=== PATIENT | male | born 1935 | race Caucasian/White ===

== ENCOUNTER → 2017-06-29 | Outpatient (CLI) | payer OTHER, MEDICARE ==
[~2017-06-29] MED LIST: ALBUTEROL2.5 MG/0.1 INH; ALLER-CHLOR4 MG PO; ANTIVERT25 MG PO; AUGMENTIN 500-1 EACH PO; CENTRUM SILVER1 EAC2 PO; CROMOLYN PO; FLOMAX0.4 MG PO; LIPITOR20 MG PO; LISINOPRIL10 MG PO; LISINOPRIL2.5 MG PO; MECLIZINE HCL12.5 MG PO; NEURONTIN 300300 M1 PO; PREDNISONE 10 M10 MG PO; PREDNISONE 20 M20 MG PO; PREDNISONE 5 MG5 M1; SPIRIVA RESPIMAT4 G1 IH; SYMBICORT160 MCG/4. INH; TUMS PO; VITAMIN D-32000 UNIT PO; VITAMINC500 PO; ZANTAC 150MG T150 MG PO; ZOFRAN ODT4 MG PO; ZPAK PO
== END ==
LOC: RAD 11:16 → CAT 11:16
DX: M43.12 Spondylolisthesis, cervical region (principal)

== ENCOUNTER → 2017-10-13 | Outpatient (CLI) | payer OTHER, MEDICARE | LOC: RAD 11:31 | DX: M25.562 Pain in left knee (principal); Z96.652 Presence of left artificial knee joint ==

== ENCOUNTER → 2018-11-10 | Outpatient (CLI) | payer OTHER, MEDICARE | LOC: RAD 15:13 | DX: J44.9 Chronic obstructive pulmonary disease, unspecified (principal) ==

== ENCOUNTER → 2019-05-10 | Outpatient (CLI) | payer OTHER, MEDICARE | LOC: RAD 10:34 | DX: R05 Cough (principal); R06.2 Wheezing; R50.9 Fever, unspecified ==

== ENCOUNTER 2019-07-20 04:37 | Inpatient (IN) | payer OTHER, MEDICARE ==
[~2019-07-20] VITALS: Ht 172.7 cm; Wt 61.7 kg
[2019-07-20] VITALS (8 sets, daily range): BP systolic 133–154; BP diastolic 61–95
--- NOTE | 2019-07-20 04:47 | NUR ---
WHILE COMPLETING TRIAGE DOCUMENTATION, O2 SAT HR DROPPED TO LOW 30s, RESPONSE BECOME MORE DELAYED, PATIENT UNABLE TO COMPLETE SENTENCE.
[2019-07-20 05:13] LABS: ABSOLUTE NEUTROPHILS 7.8 thou/uL (1.4-8.2); BASOPHILS 0.7 % (0.0-2.0); EOSINOPHILS 2.8 % (0.0-3.0); HEMATOCRIT 42.1 % (42.0-52.0); HEMOGLOBIN 14.5 gm/dL (14.0-18.0); LYMPHOCYTES 19.8 % (24.0-44.0); MCH 32.2 pg (26.0-34.0); MCHC 34.4 g/dL (28.0-37.0); MCV 93.8 fL (80.0-100.0); PLATELET COUNT 244 thou/uL (150-400); POLYS 68.7 % (36.0-66.0); RBC 4.49 mil/uL (4.50-6.00); RDW 14.4 % (10.5-14.5); WBC 11.3 thou/uL (4.0-11.0)
[2019-07-20 05:16] LABS: ANION GAP 8 mmol/L (7-16); BUN 14 mg/dL (7-18); CALCIUM 9.2 mg/dL (8.5-10.1); CHLORIDE 102 mmol/L (98-107); CO2 31 mmol/L (21-32); CREATININE 1.2 mg/dL (0.7-1.3); GLUCOSE 127 mg/dL (74-106); POTASSIUM 4.1 mmol/L (3.5-5.1); SODIUM 141 mmol/L (136-145)
[2019-07-20 05:25] LABS: APTT 27.8 Seconds (24.5-32.8); PROTIME 10.1 Seconds (9.3-11.4)
[2019-07-20 05:27] LABS: ALBUMIN 3.8 g/dL (3.4-5.0); SGOT 15 U/L (15-37); SGPT 15 U/L (30-65); TOTAL BILIRUBIN 0.5 mg/dL (<0.1-1.0); TOTAL PROTEIN 7.1 g/dL (6.4-8.2); TROPONIN-I <0.06 ng/mL (<0.06)
--- NOTE | 2019-07-20 05:28 | NUR ---
ERP DISCUSSING CASE WITH NEURO AT THIS TIME. REPEAT NIH AFTER RETURN FROM CT SCAN, SEE DOCUMENTATION.
[2019-07-20] MEDS ORDERED: GASTROCROM100 MG/5 M PO (06:11)
[2019-07-20] MEDS ORDERED: ZANTAC 150MG T150 MG PO (06:11)
[2019-07-20] MEDS ORDERED: CHLORPHENIRAMINE (06:13)
[2019-07-20] MEDS ORDERED: ARICEPT 5 MG TAB5 MG PO (06:14)
[2019-07-20] MEDS ORDERED: ASPIR 8181 MG PO (06:14)
[2019-07-20 09:14] LABS: CHOLESTEROL 251 mg/dL (<200); HDL CHOLESTEROL 61 mg/dL (>40); LDL CHOLESTEROL 158 mg/dL (<100); TC:HDL 4.1 Ratio (Not establshd); TRIGLYCERIDE 163 mg/dL (<150); VLDL 33 mg/dL (<40)
--- NOTE | 2019-07-20 10:21 | NUR ---
ASSESSMENT: CM REVIEWED CHART AND MET WITH PATIENT AT THE BEDSIDE ALONG WITH HIS . PT WAS ADMITTED WITH POSSIBLE CVA. PT REPORTS HE LIVES IN A HOUSE WITH HIS . PT REPORTS NO STEPS TO ENTER. 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 PT REPORTS HE NORMALLY AMBULATES USING A CANE BUT ALSO HAS A WALKER AT HOME IF NEEDED. PT REPORTS HE HAS AN INOGEN OXYGEN MACHINE AT HOME TO USE PRN. PT REPORTS THAT HE HAS A GRAB BAR AND SHOWER CHAIR AND IS INDEPENDENT WITH ADLS. PT REPORTS THAT HE HAS HAD OUTPATIENT THERAPY IN THE PAST BUT HAS NEVER HAD HH OR BEEN TO SNF/REHAB. CM DISCUSSED ROLE. PT IS HOPEFUL TO RETURN HOME ONCE MEDICALLY STABLE. PT/OT IS TO SEE PATIENT AND CM WILL CONTINUE TO FOLLOW TO ASSIST NEEDED.
[2019-07-20 10:54] LABS: URINE BILIRUBIN NEGATIVE (Negative); URINE BLOOD NEGATIVE (Negative); URINE CLARITY CLEAR; URINE COLOR YELLOW; URINE GLUCOSE-RANDOM* NEGATIVE (Negative); URINE KETONES NEGATIVE (Negative); URINE LEUKOCYTES-REFLEX NEGATIVE (Negative); URINE NITRITE-REFLEX NEGATIVE (Negative); URINE PROTEIN (DIPSTICK) NEGATIVE (Negative); URINE SPECIFIC GRAVITY <= 1.005 (1.005-1.035); URINE UROBILINOGEN 0.2 E.U./dl (0.2-1.0)
--- NOTE | 2019-07-20 11:55 | 2DMMODE ---
[facility] [place] [address] 2 D/M-MODE ECHOCARDIOGRAM Name: OSCARДМИТРИЙ Nam Room #: 362-P [facility] IN M.R.#: [id number] Admission: 07/20/19 Attend Phys: Saba Colvin Discharge: Date of : 31 Date of Service: 07/20/19 1155 Report #: [id number] THIS REPORT FOR: //name// APPROVED REPORT Study performed: 07/20/2019 11:05:17 EXAM: Comprehensive 2D, Doppler, and color-flow Echocardiogram Patient Location: Bedside Room #: [facility] Status: routine BSA: 1.73 HR: 77 bpm BP: 154/95 mmHg Rhythm: NSR Other Information Study Quality: Fair Indications Hypertension/HDD 2D Dimensions IVC: 19.00 mm Aortic Valve AoV Peak Reed.: 1.15 m/s AO Peak Gr.: 5.33 mmHg LVOT Max P.70 mmHg LVOT Max V: 0.82 m/s Mitral Valve E/A Ratio: 0.6 MV Decel. Time: 240.05 ms MV E Max Reed.: 0.48 m/s MV A Reed.: 0.82 m/s MV PHT: 69.61 ms IVRT: 147.64 ms Pulmonary Valve PV Peak Reed.: 1.21 m/s PV Peak Gr.: 5.82 mmHg Pulmonary Vein P Vein S: 0.55 m/s P Vein A: 0.28 m/s P Vein D: 0.33 m/s P Vein A Dur.: 124.6 msec P Vein S/D Ratio: 1.67 [facility] [address] [address] 2 D/M-MODE ECHOCARDIOGRAM Name: ДМИТРИЙ MOORE Nam Room #: 362-P [facility] IN [facility].#: [id number] Admission: 07/20/19 Attend Phys: Saba Colvin Discharge: Date of : 31 Date of Service: 07/20/19 1155 Report #: [id number] Tricuspid Valve TR Peak Reed.: 2.23 m/s TR Peak Gr.: 19.86 mmHg PA Pressure: 30.00 mmHg Left Ventricle The left ventricle is normal size. There is normal LV segmental wall motion. There is normal left ventricular wall thickness. The left ventricular systolic function is normal. The left ventricular ejection fraction is within the normal range. LVEF is 55-60%. Grade I - abnormal relaxation pattern. Right Ventricle The right ventricle is normal size. The right ventricular systolic function is normal. Atria The left atrium size is normal. Right atrium is at the upper limits of normal. Aortic Valve The aortic valve is normal in structure. No aortic regurgitation is present. There is no aortic valvular stenosis. Mitral Valve The mitral valve is normal in structure. There is no mitral valve regurgitation noted. No evidence of mitral valve stenosis. Tricuspid Valve The tricuspid valve is normal in structure. There is trace tricuspid regurgitation. Estimated PAP 30 mmHg. There is no pulmonary hypertension. Pulmonic Valve The pulmonary valve is normal in structure. There is no pulmonic valvular regurgitation. Great Vessels The aortic root is normal in size. IVC is dilated and collapses >50% with inspiration. Pericardium There is no pericardial effusion. <Conclusion> [facility] [address] [place] [address] 2 D/M-MODE ECHOCARDIOGRAM Name: ДМИТРИЙ MOORE Room #: 362-P [facility] IN ..#: [id number] Admission: 07/20/19 Attend Phys: Saba Colvin Discharge: Date of : 31 Date of Service: 07/20/19 1155 Report #: [id number] The left ventricle is normal size. LVEF is 55-60%. The right ventricle is normal size. The right ventricular systolic function is normal. The aortic valve is normal in structure. The mitral valve is normal in structure. The tricuspid valve is normal in structure. There is trace tricuspid regurgitation. Estimated PAP 30 mmHg. There is no pulmonary hypertension. The pulmonary valve is normal in structure. There is no pericardial effusion. <ELECTRONICALLY SIGNED> By: Gareth Styles MD 07/20/19 1155 1155 1155 Gareth Styles MD /INF
--- NOTE | 2019-07-20 20:05 | NUR ---
PATIENT ORIENTED EXCEPT TO DATE WITH SPOUSE AT BEDSIDE. 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 PATIENT WOULD LIKE TO DISCHARGE HOME SOON POSSIBLE. PER DR. CRUZ PATIENT NEEDS HEART MONITORED AND EEG BEFORE DISCHARGE. PATIENT AND SPOUSE COOPERTIVE WITH PLAN OF CARE.
[2019-07-21 00:09] LABS: GLYCOHEMOGLOBIN (HGB A1C) 5.8 % (4.8-5.6)
[2019-07-21 04:35] VITALS: BP 128/66
[2019-07-21 05:39] LABS: ABSOLUTE NEUTROPHILS 4.8 thou/uL (1.4-8.2); BASOPHILS 0.7 % (0.0-2.0); EOSINOPHILS 3.6 % (0.0-3.0); HEMATOCRIT 40.6 % (42.0-52.0); HEMOGLOBIN 13.8 gm/dL (14.0-18.0); LYMPHOCYTES 29.3 % (24.0-44.0); MCHC 34.1 g/dL (28.0-37.0); MCV 93.9 fL (80.0-100.0); MONOCYTES 7.3 % (1.0-8.0); PLATELET COUNT 224 thou/uL (150-400); POLYS 59.1 % (36.0-66.0); RBC 4.32 mil/uL (4.50-6.00)
[2019-07-21 05:55] LABS: CALCIUM 8.8 mg/dL (8.5-10.1); CREATININE 1.2 mg/dL (0.7-1.3); MAGNESIUM 1.9 mg/dL (1.8-2.4)
--- NOTE | 2019-07-21 07:40 | NUR ---
ASSUMED CARE AT 1900. PT A&Ox4 WITH OCCASIONAL FORGETFULLNESS, SCORED A ZERO ON NIH OVERNIGHT, NO WEAKNESS/DIZZINESS/DROOP NOTED. DENIES SOB, BUT HAS INCREASINGLY WHEEZY LUNG SOUNDS OVERNIGHT, SPOKE WITH RT THIS AM AND THEY WILL DO A TREATMENT WITH 0700 ROUNDS. DENIES NAUSEA OR PAIN OVERNIGHT. UP TO TOILET MULTIPLE TIMIES OVERNIGHT, URINATING LARGE AMOUNTS OF LIGHT YELLOW URINE. ONE MEDIUM FORMED STOOL IN THE EVENING. HAS BEEN SR ON TELE OVERNIGHT. PLAN FOR EEG THIS AM AND POSSIBLE D/C TODAY. NO OTHER CONCERNS, SHIFT REPORT GIVEN AT 0700.
[2019-07-21 08:03] VITALS: BP 142/77
--- NOTE | 2019-07-21 08:28 | EKG ---
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
[2019-07-21] MEDS ORDERED: LIPITOR20 MG PO (09:45)
[2019-07-21 11:46] VITALS: BP 126/66
--- NOTE | 2019-07-21 14:26 | NUR ---
on-going assessment: cm reviewed chart and met with patient and his at the bedside. pt has orders to discharge home. pt reports having no needs.
--- NOTE | 2019-07-21 14:27 | NUR ---
on-going assessment: PT IS TO HAVE VATS TODAY. PT IS VERY INTERESTED IN GOING TO [facility] WHO[facility] WILL HAVE TO GET INSURANCE AUTH WELL SEE HOW HE DOES WITH THERAPIES AFTER VATS. CM SPOKE WITH Robert LIALEANDRO WHO REPORTS THAT THERAPIES WILL HAVE TO BE REORDERED AGAIN AFTER VATS AND SEE HOW PATIENT DOES TO WHETHER OR NOT THEY MAY BE ABLE TO ACCEPT.
[2019-07-21 14:41] VITALS: BP 126/66
--- NOTE | 2019-07-21 18:47 | NUR ---
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
--- NOTE | 2019-07-26 09:27 | HC ---
[facility] [place] [address] CONSULTATION Name: ДМИТРИЙ MOORE Room #: 362-P [facility] IN M.R.#: [id number] Admission: 07/20/19 Attend Phys: Saba Florentino Discharge: 07/21/19 Date of : 33 Report #: [id number] THIS REPORT FOR: //name// CC: Saba Florentino Ry Jarrell DATE OF SERVICE: 07/20/2019 HISTORY OF PRESENT ILLNESS: This is an 83-year-old male patient who was seen by me in the Emergency Room. I had multiple discussions with the Emergency Room physician and talked to the patient's . The history is poorly defined. The patient has a baseline dementia. I could not tell how severe it is, but he is being followed by [facility] for the patient's dementia. They have started him on some medications. At 7:00 p.m. yesterday, noticed that the patient was not able to talk as good as he usually does. He had trouble finding words more than his usual. Then, he went to sleep around 11:30 and Neurology consultation was requested on 04/21/2019 because he was having a pretty significant Wernicke's aphasia as I understood from the Emergency Room physician. I came and saw the patient on my examination. He did not look too bad. He has a lot of trouble with memory, which I suspect is his baseline, but he was able to form the words and the indicated that he may have improved. REVIEW OF SYSTEMS: Positive for multiple problems in this patient. He has chronic ataxia. He follows up with Neurology. He has speech difficulty. He has some pulmonary problem for which he follows up with Dr. Velez. He had neck problems in the past. He has a history of BPH. He has a history of hypertension and high cholesterol. This was his relevant 14-point review of system. He did not complain of any new eye, ENT, GI, musculoskeletal, constitutional, dermatological, hematological, psychiatric, throat, allergic symptom associated with present symptomatology. He does have symptoms from the heart and from the pulmonary perspective, but that is his baseline. PAST MEDICAL HISTORY: Positive for dementia. FAMILY HISTORY: Negative for any early age stroke. SOCIAL HISTORY: He lives with his and he does not drink alcohol. PHYSICAL EXAMINATION: Indicate that he is alert. He could not tell me the exact date and he could partially describe the president, but did not know his name. His speech to me looks more or less intact. He is able to tell he does have trouble, but I do not know what his baseline is and he was still able to express most of the time and able to comprehend most of the time, but with his underlying dementia, it is very difficult to tell what is new and what is old. [facility] [address] [place] [address] CONSULTATION Name: ДМИТРИЙ MOORE Room #: 362-P DIS IN M.R.#: [id number] Admission: 07/20/19 Attend Phys: Saba Florentino Discharge: 07/21/19 Date of : 33 Report #: [id number] Cranial nerve examination and neuromuscular examination as checked for strength, sensation, reflexes and tone looks unremarkable. There is no meningeal sign. There is no carotid bruit. Pulses are palpable at least in the upper extremities. There is no edema, cyanosis or jaundice. There is no thyroid mass. He is reasonably well-developed individual who does not have any dysmorphic features of eyes, ears and face. Blood pressure is 154/95, respiration is 17, pulse is 71 and temperature is 98. LABORATORY DATA: Indicated white count of 11.3. He had a CT of the head, which was unremarkable. IMPRESSION: When I got the initial call in this patient, it would appear he was having significant Wernicke's aphasia at that time. Assuming his symptoms started at 7:00 p.m. yesterday, he was outside the window for TPA. Even if we take 11:30 at the time of onset, he was still outside the window for TPA. However, if he is having such a bad Wernicke's aphasia, I recommended that we work him up further to make sure he is not a candidate for any intervention and see what the tissue looks like. Because of that, he underwent a CT angio and perfusion and that does not appear to be showing any definite abnormality. I asked him to order a stat MRI on him, which was ordered, but is not done. PLAN: In this patient, we will be to get him on aspirin. He will probably needs to be on statin. He has significant dementia. After his dismissal, he needs to follow up with the primary care and his neurologist at [facility]. We will also get an echocardiogram because of this history. Time spent about 50 minutes and majority of that counseling and coordinating. <ELECTRONICALLY SIGNED> By: Kodak Rajput MD 07/26/19 0927 1029 11 Kodak Rajput MD /nt
== END 2019-07-21 15:30 | disposition home or self-care (01) | DRG 69 ==
LOC: ER 04:37 → 3W 06:31 → EROBS 06:31 → 3W 07:04
PROVIDERS: Emergency Medicine; Nurse Practitioner; ADMIT Hospitalist
DX: G45.9 Transient cerebral ischemic attack, unspecified (principal); I10 Essential (primary) hypertension; E78.00 Pure hypercholesterolemia, unspecified; N40.0 Benign prostatic hyperplasia without lower urinary tract symptoms; F03.90 Unspecified dementia, unspecified severity, without behavioral disturbance, psychotic disturbance, mood disturbance, and anxiety; E78.5 Hyperlipidemia, unspecified; Z96.653 Presence of artificial knee joint, bilateral; D72.829 Elevated white blood cell count, unspecified; J45.909 Unspecified asthma, uncomplicated; R27.0 Ataxia, unspecified; Z79.82 Long term (current) use of aspirin; Z79.899 Other long term (current) drug therapy; Z88.6 Allergy status to analgesic agent; Z88.1 Allergy status to other antibiotic agents; Z88.8 Allergy status to other drugs, medicaments and biological substances; Z87.891 Personal history of nicotine dependence
CPT/HCPCS: 10879

== ENCOUNTER → 2020-06-19 | Outpatient (CLI) | payer OTHER, MEDICARE ==
[~2020-06-19] MED LIST changes: +ARICEPT 5 MG TAB5 MG PO; +ASPIR 8181 MG PO; +CHLORPHENIRAMINE; +GASTROCROM100 MG/5 M PO
== END ==
LOC: CAT 10:55
PROVIDERS: ATTEND Otolaryngology
DX: J33.0 Polyp of nasal cavity (principal)

== ENCOUNTER → 2020-07-23 | Outpatient (CLI) | payer OTHER, MEDICARE ==
[~2020-07-23] MED LIST changes: +ALLERGY-TIME4 MG PO; +CALCIUM + D SO1 EACH PO; +PROAIR HFA8.5 GM INH
== END ==
LOC: LAB 07:58
PROVIDERS: ATTEND Otolaryngology
DX: Z01.812 Encounter for preprocedural laboratory examination (principal); Z20.828 Contact with and (suspected) exposure to other viral communicable diseases

== ENCOUNTER → 2020-07-27 | Day surgery (SDC) | payer OTHER, MEDICARE ==
[~2020-07-27] VITALS: Ht 172.7 cm; Wt 68.0 kg
--- NOTE | ~2020-07-27 | O ---
[facility] [address] OPERATIVE REPORT Name: ДМИТРИЙ MOORE Room #: REG [facility]#: [id number] Admission: 07/27/20 Attend Phys: Tra Villagomez MD Discharge: Date of : 33 Report #: [id number] THIS REPORT FOR: cc: Ry Jarrell MD, Richard S. MD [place],Tra Kelley MD ~ CC: Tra Jarrell DATE OF SERVICE: 07/27/2020 PREOPERATIVE DIAGNOSES: Right-sided nasal polyposis, chronic sinusitis. POSTOPERATIVE DIAGNOSES: Right-sided nasal polyposis, chronic sinusitis. PATH: Pending. PROCEDURE: Image-guided endoscopic right nasal polypectomy, right total ethmoidectomy, right nasal antral window with content removal, right frontal sinus exploration. SURGEON: Tra Villagomez MD ANESTHESIA: General LMA. INDICATIONS: See H and P. FINDINGS: Massive polyposis noted filling the majority of the right nasal cavity with demineralization of the right middle turbinate. Polypoid tissue had also demineralized a good portion of the uncinate process and most of the ethmoid bone. Polyps were noted back to the face of the sphenoid, but the sphenoid ostia was widely patent and there was no polypoid mucosa within the sphenoid ostia or in the sphenoid itself. TECHNIQUE: After obtaining consent, the patient was brought to the operating suite, appropriate timeout was performed. General LMA anesthesia was obtained, the bed was turned to 90 degrees. He was placed in a slight head up position. Nose was prepped and draped in usual sterile fashion. The LuxanovaX image guidance device was registered appropriately and accuracy was confirmed down to 1 mm. This was used throughout the case with both the LandmarX guidance suction and microdebrider for accuracy. Cottonoids were placed in the right naris to help vasoconstrict the mucosa. 2 mL of 1% Xylocaine, 1:100,000 epinephrine was injected in the polyps as the middle turbinate and uncinate were not visible. [facility] [address] [place] [address] OPERATIVE REPORT Name: ДМИТРИЙ MOORE Room #: REG [facility]#: [id number] Admission: 07/27/20 Attend Phys: Tra Villagomez MD Discharge: Date of : 33 Report #: [id number] Using a curved 12-degree [employer] blade, I first did an endoscopic nasal polypectomy using a 0 and then switching to a 30-degree scope. This cleared up the nasal cavity to where I can see the inferior turbinate and then was able to palpate the inferior aspect of the middle turbinate. I then entered into the middle meatus and removed the polypoid tissue until I could identify the anterior portion of the middle turbinate. There is a large polyp wrapping around the posterior aspect of the middle turbinate, was taken down as well, but does not appear to be attached to the medial surface of the middle turbinate. At that point, I then completed an ethmoidectomy proceeding in an anterior to posterior direction back to the sphenoid face. Most of this was devitalized bone and demineralized bone, removing a polyp tissue. A large lateral ethmoid cavity was entered with large polyps removed. I then returned more anteriorly where I opened the nasal antral window more fully anteriorly and inferiorly with combination of a side biter and the 12-degree blade. I then removed several large polyps from within the maxillary sinus itself. Visualization did show some cobblestoning of the maxillary sinus mucosa, but there was no overt sign of a tumor present. At no time did I have any appearance suggestive of an inverting papilloma. I returned to the anterior portion of the ethmoid resection where I was able to debride up into the agger nasi air cell. I then took a frontal sinus probe and was able to easily admit this into the frontal duct. I did remove a small amount of polypoid mucosa from the anterior portion of the frontal sinus region. Having check to make sure all the polypoid tissue was removed and all devitalized bone and mucosa was removed, the nasal cavity was suctioned free. There was no evidence of herniation of orbital fat into the lateral dissection. There was no sinus CSF drainage. At that point, a single piece of Xerogel was folded and placed in the ethmoid defect and the second piece was placed and wedged between the lateral nasal wall and the middle turbinate to keep the middle turbinate medialized. The nasopharynx was suctioned free of secretions. He was returned to anesthesia where he was lightened, extubated and taken to recovery room in stable condition. ESTIMATED BLOOD LOSS: 250 mL. By: 9 0947 Tra Villagomez MD /alli
--- NOTE | 2020-07-27 07:14 | H ---
[facility] [place] [address] HISTORY AND PHYSICAL Name: ДМИТРИЙ MOORE Room #: REG [facility] M..#: [id number] Admission: 07/27/20 Attend Phys: Tra Villagomez MD Discharge: Date of : 33 Report #: [id number] THIS REPORT FOR: cc: Ry Jarrell MD, Richard S. MD [place],Tra Kelley MD ~ CC: Tra Jarrell CHIEF COMPLAINT: Right nasal airway obstruction, right sinus mass. HISTORY: The patient is an 84-year-old gentleman who has a known history of nasal polyposis in the past. He has not had any previous surgery on the area. He has not responded more recently to the use of oral and/or topical steroids to the area, despite having had success in the past. At the visit in May of this year, he was complaining of more right-sided nasal airway obstruction and thickened posterior mucus. This was noted to be worse in a reclining position along with the loss of olfaction. At that time, an evaluation demonstrated a large mass filling the right side of the nasal vault, which appeared to represent nasal polyposis. Since he did not respond to medication, a CT scan was obtained to determine if any reasonable surgical approach was possible. He was also given budesonide rinses at that time, which have also not result in any improvement. Evaluation of the CT scan did show a substantial amount of involvement of the right maxillary, right ethmoid, sphenoid and frontal sinus areas with opacification of the ostiomeatal complex and apparent bony erosion of a good portion of the nasal antral window and ethmoid bone spaces. There appears to be no violation of the lamina papyracea or the fovea ethmoidalis however. Based on these findings, I discussed the option with the patient of surgical intervention, which would consist of intranasal polypectomy along with as much removal of the mass from the ethmoid and frontal sinus, sphenoid and maxillary sinus region as possible. If this turns to be an inverted papilloma, certainly a complete extirpation would be in his best interest due to the small risk of a squamous cell carcinoma. Biopsies will be taken prior to any surgical extirpation however. I reviewed with him the risks involved including, but not limited to anesthesia, bleeding, infection, surgical scarring, need for further surgical intervention, temporary or permanent loss of vision, complete loss of olfaction, recurrent growth of polyposis, CSF leak and/or rhinorrhea, brain injury, stroke. He understands he likely will need to have some stents and/or a nasal packing in place postoperatively. Prior to surgical intervention, a referral was made to his primary care doctor, Dr. Ry Jarrell, who cleared him for surgical intervention. ALLERGIES TO MEDICATION: INCLUDE AMITRIPTYLINE, CODEINE, GABAPENTIN CEPHALOSPORIN, AMOXICILLIN. [address] [address] HISTORY AND PHYSICAL Name: ДМИТРИЙ MOORE Nam Room #: REG [facility].#: [id number] Admission: 07/27/20 Attend Phys: Tra Villagomez MD Discharge: Date of : 33 Report #: [id number] MEDICATIONS ON ADMISSION: Chlorpheniramine 4 mg as needed every 6 hours, lisinopril, albuterol inhaler as needed, rivastigmine 1.5 mg capsule daily, Spiriva inhaler twice a day, Symbicort inhaler twice a day, tamsulosin 0.4 mg daily and vitamin D 400 units daily. PAST MEDICAL AND SURGICAL HISTORY: Adenotonsillectomy, bladder surgery, hernia surgery, prostate surgery, laminectomy, skin cancer surgery, appendectomy. Medical history is Notable for early dementia, osteoarthritis, asthma, hearing loss, essential hypertension. FAMILY HISTORY: Noncontributory. REVIEW OF SYSTEMS: Negative for any known GI or issues. He does have moderate asthma and on occasion needs oxygen at night. PHYSICAL EXAMINATION: GENERAL AND VITAL SIGNS: He appears his stated age. Height 5 feet 11 inches, weight 155 pounds. Last recorded blood pressure 148/79. HEENT: Unremarkable within the oral cavity and oropharynx. Neck palpates normally. Intranasal examination is as noted above. CHEST: Clear ____ with normal breath sounds. ASSESSMENT: Right pansinusitis with nasal mass. Plan will be for biopsy of nasal mass with frozen section followed by above-mentioned endoscopic surgery. <ELECTRONICALLY SIGNED> By: Tra Villagomez MD 07/27/20 0714 1609 1713 Tra Villagomez MD /nt
[2020-07-27 08:18] VITALS: BP 133/81
[2020-07-27 09:18] VITALS: BP 133/81
--- NOTE | 2020-08-01 13:08 | PATH ---
[facility] [address] [place] [address] PATHOLOGY RPT PROCEDURE Name: NOEL OTTO Room #: REG [facility] M.R.#: [id number] Admission: 07/27/20 Date of : 31 Discharge: Report #: [id number] Path Case #: [id number] [facility] Accession Number: [id number] . 01 Material submitted: . sinus, frontal - RIGHT SINUS CONTENTS INVERTED PAPILLOMA VS NASAL POLYP . 01 Clinical history: . CHRONIC SINUSITIS UNSPECIFIED . 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 - No definite dysplasia identified. - Mild increase in eosinophils within the infiltrate. - Fragments of sinonasal mucosa with acute and chronic inflammation. - Fragments of reactive bone. (IUV:pit 07/31/2020) QTP 07/31/2020 1140 Local . 02 Comment: A GMS fungus special stain is ordered on block A1 and the results of these will be reported in an addendum to follow. (IUV:pit 07/31/2020) . 02 Addendum: . This addendum is issued subsequent to reviewing a properly controlled GMS fungal special stain performed on block A1. It shows no definite fungal hyphal or yeast elements present. (IUV/db; 08/01/2020) . . Professional services performed by [facility] at [facility], [address] [place] [address] , [place] [address]. Technical services performed by [facility] at [address] [place] [address], [address], [place] [address]. QMS/08/01/2020 Addendum Electronically Signed by Elvira Smyth MD, Pathologist . 02 Electronically signed: . Elvira Smyth MD, Pathologist NPI- [id number] . 01 Gross description: . Received in formalin labeled "Noel Otto, right sinus contents? Inverted papilloma versus polyp" is a 12.5 x 7.5 x 0.4 cm aggregate of tissue. Approximately 75% of the specimen consists of pink-ulloa mucosa, [facility] [address] [place] [address] PATHOLOGY RPT PROCEDURE Name: NOEL OTTO Nam Room #: REG [facility] M.R.#: [id number] Admission: 07/27/20 Date of : 31 Discharge: Report #: [id number] Path Case #: [id number] and 25% is red-brown friable debris and clotted blood. Approximately 50% of the specimen is submitted in cassettes A1-A4. ([facility]; 07/27/2020) SY/SYC 07/27/2020 Local . 02 Pathologist provided ICD-10: D14.0 . 02 CPT . 874965, [id number] Specimen Comment: A courtesy copy of this report has been sent to [phone] Specimen Comment: Report sent to Performed at: [address], [place] [id number] MD Rohit Gr MD Phone: [phone] Performed at: [address] [id number] MD Elvira Smyth MD Phone: [phone]
== END | disposition home or self-care (01) ==
LOC: OR 06:14
PROVIDERS: ATTEND Otolaryngology
DX: D14.0 Benign neoplasm of middle ear, nasal cavity and accessory sinuses (principal); J32.9 Chronic sinusitis, unspecified; J43.9 Emphysema, unspecified; N40.0 Benign prostatic hyperplasia without lower urinary tract symptoms; F03.90 Unspecified dementia, unspecified severity, without behavioral disturbance, psychotic disturbance, mood disturbance, and anxiety; Z98.890 Other specified postprocedural states; Z79.899 Other long term (current) drug therapy; Z87.891 Personal history of nicotine dependence; Z96.653 Presence of artificial knee joint, bilateral; Z98.41 Cataract extraction status, right eye; Z98.42 Cataract extraction status, left eye; Z88.8 Allergy status to other drugs, medicaments and biological substances
CPT/HCPCS: 50010; 50101; 50286; 50386; 50398; 50573; 52290; 52291; 53618; 62110; 62900; 64037; 70005

== ENCOUNTER 2021-12-16 22:08 | Inpatient (IN) | payer OTHER, MEDICARE ==
[~2021-12-16] VITALS: Ht 152.4 cm; Wt 59.9 kg
[2021-12-16 22:21] VITALS: BP 175/104
[2021-12-16 23:15] LABS: ABSOLUTE NEUTROPHILS 7.8 thou/uL (1.4-8.2); BASOPHILS 0.5 % (0.0-2.0); EOSINOPHILS 2.8 % (0.0-3.0); HEMATOCRIT 45.6 % (42.0-52.0); HEMOGLOBIN 15.2 gm/dL (14.0-18.0); LYMPHOCYTES 19.8 % (24.0-44.0); MCH 31.7 pg (26.0-34.0); MCHC 33.3 g/dL (28.0-37.0); MCV 95.1 fL (80.0-100.0); MONOCYTES 6.5 % (1.0-8.0); PLATELET COUNT 237 thou/uL (150-400); POLYS 70.4 % (36.0-66.0); WBC 11.1 thou/uL (4.0-11.0)
[2021-12-16 23:19] LABS: CALCIUM 9.3 mg/dL (8.5-10.1); CREATININE 1.2 mg/dL (0.7-1.3); POTASSIUM 3.6 mmol/L (3.5-5.1)
[2021-12-16 23:25] LABS: ALBUMIN 4.1 g/dL (3.4-5.0); TOTAL BILIRUBIN 0.5 mg/dL (0.2-1.0); TOTAL PROTEIN 7.6 g/dL (6.4-8.2)
[2021-12-16 23:52] LABS: BE(vivo) -0.6 mmol/L (-2 to +3); HCO3 27.2 mmol/L (22.0-26.0); PCO2 56.9 mmHg (35.0-45.0); PO2 102.2 mmHg (80.0-100.0); pH 7.297 (7.360-7.450)
[2021-12-17 04:45] VITALS: BP 141/62
[2021-12-17 04:47] VITALS: BP 175/104
[2021-12-17 08:05] VITALS: BP 116/66
[2021-12-17 12:05] VITALS: BP 132/55
[2021-12-17 15:10] VITALS: BP 147/55
[2021-12-18 03:18] LABS: HEMATOCRIT 38.2 % (42.0-52.0); MCH 31.8 pg (26.0-34.0); MCHC 33.9 g/dL (28.0-37.0); MCV 93.7 fL (80.0-100.0); RBC 4.08 mil/uL (4.50-6.00); RDW 13.6 % (10.5-14.5); WBC 20.6 thou/uL (4.0-11.0)
[2021-12-18 04:06] LABS: CALCIUM 9.1 mg/dL (8.5-10.1); CREATININE 1.6 mg/dL (0.7-1.3)
[2021-12-18 07:05] VITALS: BP 147/83
[2021-12-18 15:14] VITALS: BP 145/88
[2021-12-18 20:02] VITALS: BP 181/98
[2021-12-19 02:31] LABS: HEMATOCRIT 42.2 % (42.0-52.0); MCH 31.3 pg (26.0-34.0); MCHC 33.2 g/dL (28.0-37.0); MCV 94.4 fL (80.0-100.0); RBC 4.47 mil/uL (4.50-6.00); RDW 13.5 % (10.5-14.5); WBC 21.5 thou/uL (4.0-11.0)
[2021-12-19 02:54] LABS: ALBUMIN 3.2 g/dL (3.4-5.0); CALCIUM 8.3 mg/dL (8.5-10.1); CREATININE 1.1 mg/dL (0.7-1.3); PHOSPHORUS 2.8 mg/dL (2.5-4.9); POTASSIUM 4.3 mmol/L (3.5-5.1)
[2021-12-19 03:42] VITALS: BP 156/99
[2021-12-19 17:38] VITALS: BP 151/87
[2021-12-19 18:30] VITALS: BP 153/90
[2021-12-20 03:01] LABS: HEMATOCRIT 40.2 % (42.0-52.0); HEMOGLOBIN 13.5 gm/dL (14.0-18.0); MCH 31.6 pg (26.0-34.0); MCHC 33.6 g/dL (28.0-37.0); MCV 94.1 fL (80.0-100.0); RBC 4.27 mil/uL (4.50-6.00); RDW 13.8 % (10.5-14.5); WBC 12.6 thou/uL (4.0-11.0)
[2021-12-20 03:59] LABS: ALBUMIN 2.8 g/dL (3.4-5.0); CREATININE 0.9 mg/dL (0.7-1.3); MAGNESIUM 2.2 mg/dL (1.8-2.4); POTASSIUM 3.8 mmol/L (3.5-5.1); TOTAL BILIRUBIN 0.6 mg/dL (0.2-1.0); TOTAL PROTEIN 5.1 g/dL (6.4-8.2)
[2021-12-20 08:19] VITALS: BP 156/78
[2021-12-20 12:41] VITALS: BP 156/78
[2021-12-20 20:29] VITALS: BP 148/88
[2021-12-21 07:28] VITALS: BP 122/70
[2021-12-21] MEDS ORDERED: DIFLUCAN SUS40 MG/ML PO (10:36)
[2021-12-21] MEDS ORDERED: CALTRATE GUMMY1 EACH PO (10:36)
[2021-12-21] MEDS ORDERED: SULFAMETHOXAZO473 ML PO (10:42)
[2021-12-21 11:21] VITALS: BP 135/72
[2021-12-21 11:50] VITALS: BP 156/78
== END 2021-12-21 13:27 | disposition home health service (06) | DRG 177 ==
LOC: ER 22:08 → EROBS 12-17 03:03 → 2N 12-17 03:03 → 4S 12-19 18:30
PROVIDERS: Emergency Medicine; Nurse Practitioner Family; ADMIT Hospitalist; ATTEND Hospitalist
PROC: 0BC38ZZ Extirpation of Matter from Right Main Bronchus, Via Natural or Artificial Opening Endoscopic (ICD-10-PCS; principal; 2021-12-18)
DX: J69.0 Pneumonitis due to inhalation of food and vomit (principal); J96.01 Acute respiratory failure with hypoxia; T17.898A Other foreign object in other parts of respiratory tract causing other injury, initial encounter; J44.1 Chronic obstructive pulmonary disease with (acute) exacerbation; F05 Delirium due to known physiological condition; Z20.822 Contact with and (suspected) exposure to COVID-19; N40.0 Benign prostatic hyperplasia without lower urinary tract symptoms; I10 Essential (primary) hypertension; R53.81 Other malaise; Z96.653 Presence of artificial knee joint, bilateral; R63.4 Abnormal weight loss; F03.90 Unspecified dementia, unspecified severity, without behavioral disturbance, psychotic disturbance, mood disturbance, and anxiety; Z98.42 Cataract extraction status, left eye; Z98.41 Cataract extraction status, right eye; Z87.891 Personal history of nicotine dependence; X58.XXXA Exposure to other specified factors, initial encounter; Y93.89 Activity, other specified; Y92.89 Other specified places as the place of occurrence of the external cause; Y99.8 Other external cause status; Z88.6 Allergy status to analgesic agent; Z88.1 Allergy status to other antibiotic agents; Z88.8 Allergy status to other drugs, medicaments and biological substances; Z68.25 Body mass index [BMI] 25.0-25.9, adult; Z79.82 Long term (current) use of aspirin; Z79.899 Other long term (current) drug therapy
CPT/HCPCS: 10081; 10100; 50010; 62110; 62900; 70005